=== PATIENT | female | born 1940 | race Caucasian/White ===

== ENCOUNTER 2016-08-24 08:31 | Outpatient (CLI) | payer MEDICARE ==
--- NOTE | 2016-08-25 08:46 | CT ---
CT ABDOMEN AND PELVIS WITH CONTRAST: Date: 08-24-16 Technique: Spiral CT of the abdomen and pelvis was done for evaluation of periumbilical pain. Oral and IV contrast were used. Axial slices were acquired the coronal and sagittal reconstructions wer e done. Comparison: 06-08-12 FINDINGS: The lung bases are clear. There is probably some coronary artery calcifications on the top slice. The liver shows diffuse fatty infiltration today compared to before. The hepatic size has not mendoza ed, though the surface may be beginning faintly nodular and I do understand there is a diagnosis of cirrhosis. The spleen is normal in size. The pancreas appear normal. There has been a prior diana cystectomy. The adrenal glands, kidneys and aorta showed no acute changes. Arterial sclerotic freeman ge is present in the aorta. The bowel is nondistended. There are no thickened loops of bowel or lauren intestinal inflammatory ch anges. No mesenteric adenopathy was seen. No free air or free fluid was present. CT of the pelvis was partially obscured by artifact from the patient's artificial hips. Nevertheles s, no mass, inflammatory change or free fluid was appreciated. Finally, there are extensive degenerative changes in the patient's lumbar spine. IMPRESSION: Diffuse fatty infiltration of the liver without change in hepatic size over time. There may be the beginnings of some fine nodularity along the surface of the liver. Exam otherwise unremarkable. POS: HOME
== END 2016-08-24 08:32 | disposition home or self-care (01) ==
LOC: BURCT 08:31
PROVIDERS: ATTEND Physician Assistant Medical
DX: K74.60 Unspecified cirrhosis of liver (principal); R10.33 Periumbilical pain; K76.0 Fatty (change of) liver, not elsewhere classified
CPT/HCPCS: 74177

== ENCOUNTER 2016-12-20 16:54 | Emergency (ER) | payer MEDICARE ==
[2016-12-20] MEDS ORDERED: Ibuprofen 200 MG TAB ONE ×2 (17:25→17:26)
[2016-12-20] MEDS ORDERED: Diazepam 5 MG TAB ONE (17:26)
== END 2016-12-20 18:17 | disposition home or self-care (01) ==
LOC: BURERS 16:54
DX: M54.12 Radiculopathy, cervical region (principal); I10 Essential (primary) hypertension; E66.9 Obesity, unspecified; E11.9 Type 2 diabetes mellitus without complications; Z79.82 Long term (current) use of aspirin; Z79.899 Other long term (current) drug therapy
CPT/HCPCS: 20551

== ENCOUNTER 2016-12-21 19:23 | Emergency (ER) | payer MEDICARE ==
[2016-12-21] MEDS ORDERED: HYDROcodone/Acetaminophen 10/325 mg Tablet ONE (19:45)
[2016-12-21] MEDS ORDERED: Orphenadrine Citrate 60 MG/2 ML VIAL ONE (19:45)
[2016-12-21] MEDS ORDERED: Bupivacaine 0.25% 10 ML VIAL ONE (20:34)
[2016-12-21] MEDS ORDERED: predniSONE 20 MG TAB ONE (20:45)
--- NOTE | 2016-12-21 20:50 | CT ---
CT OF THE BRAIN 12/21/16 Comparison is made with a prior study dated 09/29/14. There has been no adverse interval change. The ventricles are normal in size for age with no shift. No intracranial bleeding, mass or sign of acute stroke was found. The calvarium appears normal and t he sphenoid sinus is clear. IMPRESSION: No acute intracranial findings. POS: HOME
--- NOTE | 2016-12-21 21:11 | CT ---
CT CERVICAL SPINE 12/21/[address] of the cervical spine was performed. Axial slices were acquired, then coronal and sagittal reconstructions were done. There is mild loss of the normal cervical lordosis which might be due to spasm. The sagittal view sh ows disc space narrowing at C5-C6 and C6-C7 as well as mild anterolisthesis of C5 on C6. This appear s to be due to facet arthritis. The C1 to dens distance is normal. Findings by level follow: C1-C2: No acute findings. C2-C3: Perhaps a little generalized bulging of the disc but no acute findings. C3-C4: Disc osteophyte complex centrally and to the left. Mild left foraminal narrowing. C4-C5: Moderate left foraminal narrowing with moderately severe left facet arthritis. C5-C6: Moderate bilateral foraminal narrowing and prominent concentric disc osteophyte complex. C6-C7: Moderate to severe right foraminal narrowing and moderate left foraminal narrowing. Rather di fficult to assess this level fully due to the beginnings of some artifact. C7-T1: Not seen optimally, but no acute findings. The patient's submandibular glands are quite prominent in size, particularly the right. The signific ance is unknown. IMPRESSION: 1. Diffuse degenerative changes with degenerative disc disease, particularly apparent in the lo wer cervical levels. 2. Mild anterolisthesis of C5 on C6 probably due to arthritic changes here. 3. Large submandibular glands. POS: HOME
== END 2016-12-21 21:07 | disposition home or self-care (01) ==
LOC: BURERS 19:23
DX: M54.12 Radiculopathy, cervical region (principal); I10 Essential (primary) hypertension; E66.9 Obesity, unspecified; E11.9 Type 2 diabetes mellitus without complications; Z79.82 Long term (current) use of aspirin; Z79.899 Other long term (current) drug therapy
CPT/HCPCS: 20552; 70450; 72125; 96372; J2360; J7506; S0020

== ENCOUNTER 2017-01-12 09:52 | Outpatient (CLI) | payer MEDICARE ==
[2017-01-12 11:50] LABS: Hemoglobin A1c 6.8 % (4.0-6.0)
== END 2017-01-12 09:53 | disposition home or self-care (01) ==
LOC: BURLAB 09:52
PROVIDERS: ATTEND Family Medicine
DX: E11.40 Type 2 diabetes mellitus with diabetic neuropathy, unspecified (principal)
CPT/HCPCS: 36415; 83036

== ENCOUNTER 2017-01-26 08:32 | Outpatient (CLI) | payer MEDICARE ==
[2017-01-26 09:32] LABS: ALT (SGPT) 24 U/L (8-55); AST (SGOT) 30 U/L (5-34); Albumin 3.8 g/dL (3.4-4.8); Alkaline Phosphatase 74 U/L (40-150); Anion Gap 16 mmol/L (10-20); BUN (Urea Nitrogen) 11 mg/dL (9.8-20.1); Bilirubin, Direct 0.3 mg/dL (0.1-0.3); Bilirubin, Total 0.6 mg/dL (0.2-1.2); Calc. Creatinine Clearance 0 mL/min (70-130); Calcium 8.7 mg/dL (7.8-10.44); Carbon Dioxide 24 mmol/L (23-31); Cardiac Risk 3.2 (Less than 4.5); Chloride 107 mmol/L (98-107); Cholesterol 179 mg/dl (< 200 Desired); Estimated GFR-MDRD 68; Glucose 157 mg/dL (83-110); HDL Cholesterol 56 mg/dL (>60 Neg Risk); LDL Cholesterol, Calculated 100 mg/dL; Potassium 4.3 mmol/L (3.5-5.1); Protein, Total 6.6 g/dL (6.0-8.3); Sodium 143 mmol/L (136-145); Triglycerides 115 mg/dL (Less than 150)
== END 2017-01-26 08:33 | disposition home or self-care (01) ==
LOC: BURLAB 08:32
PROVIDERS: ATTEND Internal Medicine Cardiovascular Disease
DX: E78.00 Pure hypercholesterolemia, unspecified (principal); I10 Essential (primary) hypertension
CPT/HCPCS: 36415; 80048; 80061; 80076

== ENCOUNTER 2018-02-08 17:18 | Emergency (ER) | payer MEDICARE ==
[2018-02-08] MEDS ORDERED: Ibuprofen 800 MG TAB ONE (17:55)
[2018-02-08] MEDS ORDERED: HYDROcodone/Acetaminophen 10/325 mg Tablet ONE (17:55)
--- NOTE | 2018-02-08 18:30 | RAD ---
LEFT WRIST: 02/08/18 Three views. HISTORY: Injury with wrist pain. Moderate to severe degenerative changes of the first carpometacarpal joint. Degenerative changes at t he scaphotrapezium. Narrowing of the radiocarpal. Old healed fracture of the distal ulna diaphysis. No acute fracture. IMPRESSION: There are chronic findings as described. No acute fracture. POS: [facility]
--- NOTE | 2018-02-08 18:31 | RAD ---
RIGHT HIP; 02/08/18 Two views. HISTORY: Injury. Right hip prosthesis is noted. Components appear in adequate position and alignment. No acute fractur e identified. IMPRESSION: No acute abnormality identified. POS: [facility]
== END 2018-02-08 18:10 | disposition home or self-care (01) ==
LOC: BURERS 17:18
DX: S63.502A Unspecified sprain of left wrist, initial encounter (principal); S70.01XA Contusion of right hip, initial encounter; S50.311A Abrasion of right elbow, initial encounter; I10 Essential (primary) hypertension; E66.9 Obesity, unspecified; W01.0XXA Fall on same level from slipping, tripping and stumbling without subsequent striking against object, initial encounter
CPT/HCPCS: J1956

== ENCOUNTER 2018-02-14 13:44 | Outpatient (CLI) | payer MEDICARE ==
--- NOTE | 2018-02-14 15:43 | RAD ---
LEFT HAND THREE VIEWS: 02/14/18 There are marked degenerative changes in the first carpometacarpal joint with an abnormal articulatio n between the trapezium and first metacarpal. Bony overgrowth is seen here with some radial side subl uxation of the first metacarpal. The findings are atypical for advanced degenerative changes of this joint. No acute fractures were seen. the other bones of the wrists and hand showed no acute change. T here may have been an old healed fracture of the distal ulna. IMPRESSION: Severe arthritic changes of the first carpometacarpal joint. POS: HOME
== END 2018-02-14 13:45 | disposition home or self-care (01) ==
LOC: BURRAD 13:44
PROVIDERS: ATTEND Family Medicine
DX: M79.642 Pain in left hand (principal); M18.12 Unilateral primary osteoarthritis of first carpometacarpal joint, left hand

== ENCOUNTER 2019-01-29 04:33 | Emergency (ER) | payer MEDICARE ==
[2019-01-29 04:59] LABS: Bilirubin Negative (Negative); Blood, Urine Negative (Negative); Clarity Clear (Clear); Glucose, Urine (Dipstick) Negative (Negative); Leukocyte Trace (Negative); Nitrite Negative (Negative); Protein, Urine (Dipstick) Negative (Neg-Trace); Urobilinogen 0.2 mg/dL (0.2-1.0)
[2019-01-29 05:07] LABS: Bacteria/HPF 1+ HPF (None Seen); RBC/HPF 0-3 HPF (0-3); WBC/HPF 0-3 HPF (0-3)
[2019-01-29] MEDS ORDERED: Ketorolac Tromethamine 30 MG/ML VIAL ONE (05:20)
[2019-01-29] MEDS ORDERED: Ondansetron PF 4 MG/2 ML Vial ONE (05:23)
[2019-01-29 05:28] LABS: #Basophils 0.1 thou/uL (0.0-0.2); #Eosinphils 0.1 thou/uL (0.0-0.7); #Lymphocytes 1.8 thou/uL (1.20-3.40); #Monocytes 0.4 thou/uL (0.11-0.59); #Neutrophils 2.7 thou/uL (1.40-6.50); %Basophils 1.1 % (0.0-1.0); %Eosinophils 2.8 % (0.0-10.0); %Lymphocytes 34.3 % (21.0-51.0); %Monocytes 8.6 % (0.0-10.0); %Neutrophils 53.1 % (42.0-75.0); Hemoglobin 13.7 g/dL (12.0-16.0); Mean Corpuscular HGB CONC 33.5 g/dL (32.0-36.0); Mean Corpuscular Hemoglobin 33.1 pg (27.0-31.0); Mean Corpuscular Volume 98.8 fL (78.0-98.0); Mean Platelet Volume 9.7 fL (7.4-10.4); Platelet Count 170 thou/uL (130-400); RBC Distribution Width 11.7 % (11.5-14.5); Red Blood Cell (RBC) Count 4.15 mill/uL (4.20-5.40); White Blood Cell (WBC) Count 5.1 thou/uL (4.8-10.8)
[2019-01-29 05:41] LABS: ALT (SGPT) 20 U/L (8-55); AST (SGOT) 19 U/L (5-34); Albumin 3.7 g/dL (3.4-4.8); Alkaline Phosphatase 77 U/L (40-150); Anion Gap 14 mmol/L (10-20); BUN (Urea Nitrogen) 12 mg/dL (9.8-20.1); Bilirubin, Total 0.5 mg/dL (0.2-1.2); Calc. Creatinine Clearance 0 mL/min (70-130); Calcium 9.2 mg/dL (7.8-10.44); Carbon Dioxide 26 mmol/L (23-31); Chloride 105 mmol/L (98-107); Estimated GFR-MDRD 73; Globulin 2.7 g/dL (2.4-3.5); Glucose 172 mg/dL (83-110); Potassium 4.1 mmol/L (3.5-5.1); Protein, Total 6.4 g/dL (6.0-8.3); Sodium 141 mmol/L (136-145)
[2019-01-29] MEDS ORDERED: traMADol HCl 50 MG TAB ONE (05:45)
--- NOTE | 2019-01-29 07:09 | CT ---
PRELIMINARY REPORT/[facility]/EMERGENCY AFTER HOURS PROCEDURE: EXAM: CT Abdomen and Pelvis Without Contrast EXAM DATE/TIME: 01/29/2019 5:07 AM CLINICAL HISTORY: 78 years old, female; Abdominal pain; Right; Prior surgery; Surgery date: 6+ months; Surgery type: Hi p replacement; Patient HX: PT C/O of RT flank pain since Monday TECHNIQUE: Imaging protocol: Axial computed tomography images of the abdomen and pelvis without contrast. Cordova l and sagittal reformatted images were created and reviewed. Radiation optimization: All CT scans at this facility use at least one of these dose optimization techniques: automated exposure control; mA and/or kV adjustment per patient size (includes targeted exams where dose is matched to clinical indication); or iterative reconstruction. COMPARISON: No relevant prior studies available. FINDINGS: Lungs: No consolidations in the lung bases. Liver: Cirrhotic liver morphology. Gallbladder and bile ducts: Surgical changes of cholecystectomy. No ductal dilation. Pancreas: No pancreatic mass or ductal dilation. Spleen: No splenic masses. Adrenals: No adrenal nodules. Kidneys and ureters: No nephroureterolithiasis or hydronephrosis. Stomach and bowel: Surgical changes of gastric bypass. No bowel obstruction. Appendix: The appendix is not visualized, however there are no inflammatory changes in the right lowe r quadrant to suspect appendicitis. Intraperitoneal space: No free air or free fluid. Vasculature: Moderate atherosclerosis of the aorta without aneurysm. Lymph nodes: No lymphadenopathy. Bladder: The bladder is obscured by streak artifact from the arthroplasty. Reproductive: The uterus and ovaries are not visualized. Bones/joints: Bilateral hip arthroplasty. Multilevel degenerative changes of the lumbar spine. Soft tissues: Bilateral calcified buttock injection granulomas. IMPRESSION: 1. No acute findings in abdomen or pelvis. 2. Cirrhotic liver morphology. 3. Surgical changes of gastric bypass without obstruction. 4. No nephroureterolithiasis or hydronephrosis. Thank you for allowing us to participate in the care of your patient. Dictated and Authenticated by: Toma Jeong MD 01/29/2019 6:30 AM Central Time ([place] & [place]) FINAL REPORT CT ABDOMEN AND PELVIS WITHOUT CONTRAST: Date: 01/29/[address] of the abdomen and pelvis was performed and compared with the prior study of 08/24/16. The lung bases are clear. The liver and spleen are normal in size. Some portions of the lower right l obe of the liver have a slightly nodular characteristic to its surface, but it does not appear substa ntially different than the prior exam. Cirrhosis is possible. The pancreas, adrenal glands, and kidn eys are unremarkable. No sign of renal mass or hydronephrosis within the limitations of a noncontrast study. There has been a prior cholecystectomy. There is a very small amount of perinephric stranding bilaterally, but this is a very nonspecific finding. The abdominal aorta is calcified. In particular , both the origin of the celiac artery and SMA are very densely calcified. The bowel shows no distention or sign of overt obstruction. There appears to be some sutures associat ed with bowel in the left upper quadrant from some prior surgery, presumably small bowel. There is no substantial bowel wall thickening to think significant inflammatory change. No free air or free flui d seen. CT of the pelvis was partially affected by artifact from the patient's hip replacements. Within this limitation, no mass, inflammatory change, or other acute findings were encountered. There are substan tial degenerative changes in the lumbar spine. There is some streaking in the fatty soft tissues of t he left flank at the level of the kidneys, but I can see this on a 2017 scan, so this is not a new fi nding. IMPRESSION: 1. No acute intra-abdominal findings to explain the patient's pain. 2. Significant calcification at the origin of the celiac and superior mesenteric arteries. POS: HOME
== END 2019-01-29 06:30 | disposition home or self-care (01) ==
LOC: BURERS 04:33
DX: S39.012A Strain of muscle, fascia and tendon of lower back, initial encounter (principal); I10 Essential (primary) hypertension; M19.90 Unspecified osteoarthritis, unspecified site; E66.9 Obesity, unspecified; Z79.82 Long term (current) use of aspirin; Z79.899 Other long term (current) drug therapy; X50.1XXA Overexertion from prolonged static or awkward postures, initial encounter
CPT/HCPCS: 74176; 80053; 81003; 81015; 85025; 96361; 96374; 96375; J1885; J2405

== ENCOUNTER 2021-07-15 11:05 | Outpatient (CLI) | payer MEDICARE | END 2021-07-15 11:06 | disposition home or self-care (01) | LOC: BURRAD 11:05 | PROVIDERS: ATTEND Internal Medicine Rheumatology | DX: M54.50 Low back pain, unspecified (principal); M41.9 Scoliosis, unspecified; M47.816 Spondylosis without myelopathy or radiculopathy, lumbar region; M51.36 Other intervertebral disc degeneration, lumbar region | CPT/HCPCS: 72100 ==

== ENCOUNTER 2021-09-21 12:20 | Emergency (ER) | payer MEDICARE ==
[2021-09-21] MEDS ORDERED: Acetaminophen 500 MG TAB ONE (13:01)
[2021-09-21 13:05] LABS: ALT (SGPT) 20 U/L (8-55); AST (SGOT) 28 U/L (5-34); Albumin 3.8 g/dL (3.4-4.8); Alkaline Phosphatase 69 U/L (40-110); Anion Gap 15 mmol/L (10-20); BUN (Urea Nitrogen) 23 mg/dL (9.8-20.1); Bilirubin, Total 0.7 mg/dL (0.2-1.2); Calc. Creatinine Clearance 0 mL/min (70-130); Calcium 9.4 mg/dL (7.8-10.44); Carbon Dioxide 32 mmol/L (23-31); Chloride 95 mmol/L (98-107); Globulin 2.7 g/dL (2.4-3.5); Glucose 199 mg/dL (83-110); Potassium 3.6 mmol/L (3.5-5.1); Protein, Total 6.5 g/dL (5.8-8.1); Sodium 138 mmol/L (136-145)
[2021-09-21 13:07] LABS: #Basophils 0.1 thou/uL (0.0-0.2); #Eosinphils 0.1 thou/uL (0.0-0.7); #Lymphocytes 1.3 thou/uL (1.20-3.40); #Monocytes 0.5 thou/uL (0.11-0.59); #Neutrophils 4.9 thou/uL (1.40-6.50); %Basophils 0.9 % (0.0-1.0); %Eosinophils 0.9 % (0.0-10.0); %Lymphocytes 18.9 % (21.0-51.0); %Monocytes 7.4 % (0.0-10.0); Hemoglobin 14.1 g/dL (12.0-16.0); Mean Corpuscular HGB CONC 34.7 g/dL (32.0-36.0); Mean Corpuscular Hemoglobin 35.7 pg (27.0-31.0); Mean Platelet Volume 9.1 fL (7.4-10.4); Platelet Count 190 thou/uL (130-400); RBC Distribution Width 11.8 % (11.5-14.5); Red Blood Cell (RBC) Count 3.96 mill/uL (4.20-5.40); White Blood Cell (WBC) Count 6.8 thou/uL (4.8-10.8)
[2021-09-21 13:08] LABS: Platelet Morphology Comment Appears Adequate; RBC Morphology Normal
== END 2021-09-21 17:00 | disposition short-term general hospital (02) ==
LOC: BURERS 12:20
DX: R55 Syncope and collapse (principal); R51.9 Headache, unspecified; I10 Essential (primary) hypertension; M19.90 Unspecified osteoarthritis, unspecified site; E66.9 Obesity, unspecified; Z20.822 Contact with and (suspected) exposure to COVID-19; Z79.82 Long term (current) use of aspirin; Z79.899 Other long term (current) drug therapy; Z68.45 Body mass index [BMI] 70 or greater, adult; Z87.19 Personal history of other diseases of the digestive system
CPT/HCPCS: 70450; 71045; 80053; 82962; 83880; 84484; 85025; 93005; 94760; U0003; U0005; 36416

== ENCOUNTER 2021-10-08 10:37 | Emergency (ER) | payer MEDICARE ==
[2021-10-08 11:15] LABS: Bilirubin Negative (Negative); Blood, Urine Small (Negative); Clarity Turbid (Clear); Glucose, Urine (Dipstick) Negative (Negative); Ketone, Urine Negative (Negative); Leukocyte Large (Negative); Nitrite Positive (Negative); Protein, Urine (Dipstick) Negative (Neg-Trace); Urobilinogen 0.2 mg/dL (Less than 2)
[2021-10-08 11:20] LABS: #Eosinphils 0.1 thou/uL (0.0-0.7); #Monocytes 0.3 thou/uL (0.11-0.59); #Neutrophils 3.5 thou/uL (1.40-6.50); %Basophils 0.9 % (0.0-1.0); %Eosinophils 1.8 % (0.0-10.0); %Lymphocytes 20.8 % (21.0-51.0); %Monocytes 6.7 % (0.0-10.0); %Neutrophils 69.8 % (42.0-75.0); Hemoglobin 13.3 g/dL (12.0-16.0); Mean Corpuscular HGB CONC 33.3 g/dL (32.0-36.0); Mean Corpuscular Hemoglobin 35.8 pg (27.0-31.0); Mean Platelet Volume 8.4 fL (7.4-10.4); Platelet Count 193 thou/uL (130-400); RBC Distribution Width 12.8 % (11.5-14.5); Red Blood Cell (RBC) Count 3.73 mill/uL (4.20-5.40); White Blood Cell (WBC) Count 4.9 thou/uL (4.8-10.8)
[2021-10-08 11:34] LABS: ALT (SGPT) 14 U/L (8-55); AST (SGOT) 24 U/L (5-34); Albumin 3.7 g/dL (3.4-4.8); Alkaline Phosphatase 69 U/L (40-110); Anion Gap 15 mmol/L (10-20); BUN (Urea Nitrogen) 12 mg/dL (9.8-20.1); Bilirubin, Total 0.5 mg/dL (0.2-1.2); Calc. Creatinine Clearance 0 mL/min (70-130); Carbon Dioxide 25 mmol/L (23-31); Chloride 107 mmol/L (98-107); Globulin 2.5 g/dL (2.4-3.5); Glucose 141 mg/dL (83-110); Potassium 4.1 mmol/L (3.5-5.1); Protein, Total 6.2 g/dL (5.8-8.1); Sodium 143 mmol/L (136-145)
[2021-10-08 11:36] LABS: Bacteria/HPF 2+ HPF (None Seen); RBC/HPF 0-3 HPF (0-3); Squamous Epithelial 0-3 HPF (0-3); WBC/HPF 21-50 HPF (0-3)
[2021-10-08 11:39] LABS: MDiff Complete? YES; Macrocytosis SLIGHT = 6-15 cells (100X) (0-5/hpf); Platelet Morphology Comment Appears Adequate
[2021-10-08] MEDS ORDERED: HYDROcodone/Acetaminophen 5/325 mg Tablet ONE (11:42)
[2021-10-08] MEDS ORDERED: Cephalexin 250 MG CAP ONE (11:52)
== END 2021-10-08 12:00 | disposition home or self-care (01) ==
LOC: BURERS 10:37
DX: S32.2XXA Fracture of coccyx, initial encounter for closed fracture (principal); N39.0 Urinary tract infection, site not specified; M19.90 Unspecified osteoarthritis, unspecified site; E66.9 Obesity, unspecified; X58.XXXA Exposure to other specified factors, initial encounter; Z68.45 Body mass index [BMI] 70 or greater, adult; Z95.5 Presence of coronary angioplasty implant and graft; Z79.82 Long term (current) use of aspirin; Z79.899 Other long term (current) drug therapy
CPT/HCPCS: 36415; 72220; 80053; 81003; 81015; 85025; 87077; 87086; 87186

== ENCOUNTER 2021-10-09 07:56 | Emergency (ER) | payer MEDICARE ==
[2021-10-09] MEDS ORDERED: Morphine 10 MG/ML VIAL ONE ×2 (08:54→11:27)
[2021-10-09 11:12] LABS: Hemoglobin 13.3 g/dL (12.0-16.0); Mean Corpuscular HGB CONC 33.1 g/dL (32.0-36.0); Mean Corpuscular Hemoglobin 35.6 pg (27.0-31.0); Mean Platelet Volume 8.7 fL (7.4-10.4); Platelet Count 192 thou/uL (130-400); Red Blood Cell (RBC) Count 3.74 mill/uL (4.20-5.40); White Blood Cell (WBC) Count 5.7 thou/uL (4.8-10.8)
[2021-10-09 11:13] LABS: #Eosinphils 0.1 thou/uL (0.0-0.7); #Lymphocytes 1.1 thou/uL (1.20-3.40); #Monocytes 0.4 thou/uL (0.11-0.59); %Basophils 0.8 % (0.0-1.0); %Eosinophils 1.7 % (0.0-10.0); %Lymphocytes 19.8 % (21.0-51.0); %Monocytes 7.7 % (0.0-10.0)
[2021-10-09 11:17] LABS: ALT (SGPT) 16 U/L (8-55); AST (SGOT) 26 U/L (5-34); Albumin 3.7 g/dL (3.4-4.8); Alkaline Phosphatase 68 U/L (40-110); Anion Gap 14 mmol/L (10-20); BUN (Urea Nitrogen) 10 mg/dL (9.8-20.1); Bilirubin, Total 0.5 mg/dL (0.2-1.2); Calc. Creatinine Clearance 0 mL/min (70-130); Calcium 8.9 mg/dL (7.8-10.44); Carbon Dioxide 22 mmol/L (23-31); Chloride 105 mmol/L (98-107); Globulin 2.4 g/dL (2.4-3.5); Glucose 138 mg/dL (83-110); Potassium 4.4 mmol/L (3.5-5.1); Protein, Total 6.1 g/dL (5.8-8.1); Sodium 137 mmol/L (136-145)
[2021-10-09] MEDS ORDERED: Cyclobenzaprine 10 MG TAB ONE (11:27)
[2021-10-09 12:50] LABS: MDiff Complete? YES; Macrocytosis SLIGHT = 6-15 cells (100X) (0-5/hpf); Platelet Morphology Comment Appears Adequate
[2021-10-09] MEDS ORDERED: Ketorolac Tromethamine 30 MG/ML VIAL ONE (13:16)
[2021-10-09 14:43] LABS: SARS-CoV-2 NAA Rapid Test Not Detected (NotDetected)
== END 2021-10-09 14:58 | disposition swing bed (61) ==
LOC: BURERS 07:56
DX: N30.00 Acute cystitis without hematuria (principal); M19.90 Unspecified osteoarthritis, unspecified site; M81.0 Age-related osteoporosis without current pathological fracture; E66.9 Obesity, unspecified; Z68.45 Body mass index [BMI] 70 or greater, adult; Z20.822 Contact with and (suspected) exposure to COVID-19; Z95.5 Presence of coronary angioplasty implant and graft; Z79.82 Long term (current) use of aspirin; Z79.899 Other long term (current) drug therapy
CPT/HCPCS: 36415; 72192; 80053; 83880; 85025; 96372; 96374; 96375; J1885; J2270; U0002

== ENCOUNTER 2024-01-22 21:08 | Emergency (ER) | payer MEDICARE | END 2024-01-22 23:04 | disposition home or self-care (01) | LOC: BURERS 21:08 | DX: S00.03XA Contusion of scalp, initial encounter (principal); S51.012A Laceration without foreign body of left elbow, initial encounter; S70.02XA Contusion of left hip, initial encounter; W18.30XA Fall on same level, unspecified, initial encounter; Y92.091 Bathroom in other non-institutional residence as the place of occurrence of the external cause ==

== ENCOUNTER 2025-07-16 10:59 | Emergency (ER) | payer MEDICARE | END 2025-07-16 13:39 | disposition home or self-care (01) | LOC: BURERS 10:59 | DX: S40.022A Contusion of left upper arm, initial encounter (principal); M79.81 Nontraumatic hematoma of soft tissue; Z79.899 Other long term (current) drug therapy; Z79.82 Long term (current) use of aspirin; W18.30XA Fall on same level, unspecified, initial encounter | CPT/HCPCS: 96372; 99283; J3010 ==